=== PATIENT | female | born 1950 | race Caucasian/White ===

== ENCOUNTER → 2023-02-04 08:18 | Outpatient (BNVA) | payer MEDICARE, SELFPAY | PROVIDERS: Referring Provider Nurse Practitioner Family; Visit Provider Specialist | DX: G56.03 Carpal tunnel syndrome, bilateral upper limbs (principal); M18.0 Bilateral primary osteoarthritis of first carpometacarpal joints | CPT/HCPCS: 73110 ==

== ENCOUNTER 2023-02-04 11:09 | Outpatient (CLI) | payer MEDICARE, SELFPAY | END 2023-02-04 11:10 | disposition home or self-care (01) | LOC: SPT 11:10 | PROVIDERS: Visit Provider Specialist | DX: Z46.89 Encounter for fitting and adjustment of other specified devices (principal); M18.0 Bilateral primary osteoarthritis of first carpometacarpal joints; G56.03 Carpal tunnel syndrome, bilateral upper limbs | CPT/HCPCS: 97760; 99204; L3924 ==

== ENCOUNTER 2023-03-06 07:57 | Day surgery (SDC) | payer MEDICARE, SELFPAY ==
[2023-03-05 10:27] VITALS: BMI 32.9
[2023-03-06] VITALS (10 sets, daily range): BP systolic 147–198; BP diastolic 74–90; PULSE 61–69; RESP 16; TEMP 36.1–36.2; O2SAT 94–98
[2023-03-06] MEDS: acetaminophen 1,000 MG/100 ML PIGGYBACK 400 MG IV (08:32)
[2023-03-06] MEDS: sodium chloride 0.9% 1,000 ML 30 ML IV (08:32)
[2023-03-06] MEDS: CELEcoxib 200 mg Capsule 400 MG PO (08:32)
--- NOTE | 2023-03-06 08:47 | ANES.PREANE2 ---
Pre-Anesthetic Assessment Height/Weight: Height 1.57 m Weight 81.647 kg Temp Pulse Resp BP Pulse Ox O2 Del Method 97.2 F L 69 16 182/79 98 Room Air 03/06/23 08:24 03/06/23 08:24 03/06/23 08:24 03/06/23 08:24 03/06/23 08:24 03/06/23 08:24 Preop Diagnosis: Left carpal tunnel syndrome and left carpometacarpal joint arthritis Operation Date: 03/06/23 09:30 Proposed Procedures p LEFT CARPAL TUNNEL RELEASE WITH LEFT THUMB CARPAL METACARPAL CORTISONE INJECTION 41279,G56.00(Left) - Kayli Santacruz MD Familial anesthetic complications: None Was Beta Katelyn taken within 24 hours: N/A Was Clonidine taken within 24 hours: N/A Last intake: Intake Last Liquid Date 03/05/23 Last Liquid Time 22:00 Last Solid Date 03/05/23 Last Solid Time 18:00 Social No alcohol and No tobacco Exam alert, oriented x 3, clear to auscultation bilaterally and regular rate & rhythm Airway Mallampati: Class III Dentition: full History/ROS No significant complaints Anesthetic Plan ASA status: 1 Anesthesia: General Risk of > 500 ml blood loss (7ml/kg in children): No Medications/Allergies Home Medications Medication Instructions Recorded Confirmed Last Taken Type CMC brace #2 ea 02/04/23 03/05/23 Unknown Rx ibuprofen PRN Pain 03/06/23 Unknown History Allergies Allergy/AdvReac Type Severity Reaction Status Date / Time No Known Allergies Allergy Verified 03/05/23 10:25 Current Medications Generic Name Dose Route Start Last Admin Trade Name Freq PRN Reason Stop Dose Admin Sodium Chloride 1,000 mls @ 30 mls/hr 03/06/23 08:15 03/06/23 08:32 Sodium Chloride 0.9% IV 03/07/23 08:14 30 mls/hr .Q24H ELMA Administration Data Anesthesia Cardiac Studies: No Data to Display
--- NOTE | 2023-03-06 08:54 | P.HPUD_ITS ---
Surgery/Procedure H&P Update DATE OF PROCEDURE: March 06, 2023 DATE H&P PERFORMED: 02/04/23 H&P UPDATE INFORMATION: I have reviewed H&P completed within last 30 days, I have examined patient prior to procedure, No changes to prior documentation and H&P is in [facility] – [place] EMR on date indicated PREOP DIAGNOSIS: Left carpal tunnel syndrome and left carpometacarpal joint arthritis PLANNED PROCEDURE: Operation Date: 03/06/23 09:30 Proposed Procedures p LEFT CARPAL TUNNEL RELEASE WITH LEFT THUMB CARPAL METACARPAL CORTISONE INJECTION 14671,G56.00(Left) - Kayli Santacruz MD Related Problem List Diagnoses (1) Carpal tunnel syndrome, left: (2) Arthritis of carpometacarpal (CMC) joint of left thumb:
[2023-03-06] MEDS: ceFAZolin 2,000 MG in sodium chloride 0.9% (plus) 50 ML 100 MG IV (09:25)
[2023-03-06] MEDS: triamcinolone 40 mg/mL SDV INJECTION (09:54)
[2023-03-06] MEDS: dexamethasone 4 mg/mL INJ INJECTION (09:56)
[2023-03-06] MEDS: lidocaine 1% INJ 10 mL (per mL) 1.5 ML XX (09:59)
--- NOTE | 2023-03-06 10:49 | P.OP_ITS ---
Operative Report Date of procedure: March 06, 2023 Pre-op diagnosis: Left carpal tunnel syndrome and left thumb carpometacarpal joint arthritis Post-op diagnosis: Left carpal tunnel syndrome and left thumb carpometacarpal joint arthritis Post-op findings: Compression across the median nerve with slight hourglass shape Procedure done: Left carpal tunnel release Injection of left carpometacarpal joint of the thumb Implants: None Pathology: none sent Surgeon: Kayli Santacruz Gerontological Nurse Practitioner: None Anesthesia: General (Per LMA, ASA 1) Estimated blood loss (mL): 2 Tourniquet time (min): 21 (At 250 mmHg) IV fluids (mL): 400 Urine output (mL): 0 Complications: None Condition: stable Disposition: PACU (Then to same-day surgery for discharge to home) Brief History: This is a 72 year old female patient here today for left carpal tunnel release as well as injection of left thumb carpometacarpal joint. She has bilateral carpal tunnel syndrome symptoms, but the patient states the left is worse than the right and has been occurring for a year or more. Patient states the pain is to the thumb area in addition to numbness. Patient describes the pain as sharp, and other times numb or dull aching. Patient states the numbness affects the index and middle finger of the left hand. Patient states the symptoms are identical to the right just more intense on the left. While in the office, consents were signed after risks and complications of the surgical procedure discussed in detail. Questions are answered. Procedure: The patient was brought to the operating theater. The patient had general anesthesia per LMA, ASA 1. The tourniquet was elevated to 250 mmHg for a total tourniquet time of 21 minutes. The patient was also given Ancef 2 g preoperatively. The arm was then prepped and draped with DuraPrep in usual fashion with the arm draped free. A surgical pause was performed. At the time, the surgical pause, we confirmed the site and side of surgery. We also confirmed the patient's identity, appropriate and timely administration of preoperative antibiotics and preoperative surgical markings. An incision was then made along the thenar crease. The incision crossed the wrist joint in a curvilinear fashion. Dissection continued through skin and soft tissues using a scalpel. The palmaris longus was identified along with the transverse carpal ligament. Each of these was released carefully to avoid injury to the median nerve. We were able to dissect gently into the carpal canal which was noted to be quite tight with significant compression across the median nerve. The nerve was visualized and was an hourglass shape. The canal was subsequently palpated to assure there was no bony encroachment upon the canal. There was a quite thickened fibrous tissue within the canal, and this was opened longitudinally as well. The canal was then palpated distally and proximally to assure that my small finger was passed easily without impingement. Finding this to be so, attention was directed to closure. The wound was irrigated with ropivacaine plain. It was then closed with 3-0 nylon in an interrupted mattress fashion. The carpometacarpal joint of the thumb was then palpated. An injection consisting of ropivacaine plain, lidocaine 1%, dexamethasone, and Kenalog was placed into the thumb carpometacarpal joint. This was accomplished without difficulty. Sterile dressing was then placed consisting of Dermabond, OpSite, fluffed fluffs, soft roll, and an Meliton wrap. The tourniquet was released after 21 minutes. There were no complications. There were no specimens. The procedure was well tolerated. Plan is the patient will be discharged home. Related Problem List Diagnoses (1) Carpal tunnel syndrome, left: (2) Arthritis of carpometacarpal (CMC) joint of left thumb:
[2023-03-06] MEDS: hyDRALAzine 20 mg/mL INJ 1 mL 5 MG IVP (11:09)
--- NOTE | 2023-03-06 16:14 | ANE.PACU2 ---
Inpatient post-anesthesia follow up: Airway intact: Yes Vital signs: Temperature 97.0 F Pulse Rate 64 Respiratory Rate 16 Blood Pressure 157/74 Pulse Oximetry 95 Oxygen Delivery Me thod Room Air Oxygen Flow Rate Fraction of Inspir ed Oxygen Hydration adequate: Yes Nausea and vomiting: No Pain level: 1 Mental status: Baseline
== END 2023-03-06 11:42 | disposition home or self-care (01) ==
PROVIDERS: PCP Nurse Practitioner Family; Visit Provider Specialist
PROC: (CPT 64721; principal; 2023-03-06 09:20)
DX: G56.02 Carpal tunnel syndrome, left upper limb (principal); M18.12 Unilateral primary osteoarthritis of first carpometacarpal joint, left hand
CPT/HCPCS: 20600; 64721; J0131; J0360; J0690; J1100; J2405; J2704; J2795; J3010; J3301; J3490; J7030

== ENCOUNTER → 2023-03-19 08:09 | Outpatient (BNVA) | payer MEDICARE, SELFPAY | PROVIDERS: PCP Nurse Practitioner Family; Visit Provider Nurse Practitioner Family | DX: Z98.890 Other specified postprocedural states (principal); G56.01 Carpal tunnel syndrome, right upper limb | CPT/HCPCS: 99024 ==